=== PATIENT | male | born 1940 | race Caucasian/White ===

== ENCOUNTER 2020-06-27 19:49 | Outpatient (CLI) | payer MEDICARE ==
[2020-06-28 07:02] LABS: Anion Gap 22 mmol/L (10-20); BUN (Urea Nitrogen) 16 mg/dL (8.4-25.7); Calc. Creatinine Clearance 0 mL/min (70-130); Calcium 8.9 mg/dL (7.8-10.44); Carbon Dioxide 20 mmol/L (23-31); Chloride 103 mmol/L (98-107); Glucose 120 mg/dL (83-110); Potassium 4.7 mmol/L (3.5-5.1); Sodium 140 mmol/L (136-145)
== END 2020-06-27 19:50 | disposition home or self-care (01) ==
LOC: MADLAB 19:49
PROVIDERS: ATTEND Family Medicine
DX: N18.30 Chronic kidney disease, stage 3 unspecified (principal)
CPT/HCPCS: 80048